=== PATIENT | female | born 1995 | race Caucasian/White ===

== ENCOUNTER 2018-04-17 13:28 | Emergency (ER) | payer OTHER ==
[~2018-04-17 13:28] MED LIST: AMOXICILLIN500 MG PO; AMOXICILLIN875 MG OR; AMOXICILLIN875 MG PO; AMPICILLIN500 MG PO; BACTRIM DS1 TAB PO; CELEXA20 M1 PO; CELEXA20 MG PO; CLONIDINE0.1 MG PO; DEPO-PROVER150 MG/ML IM; DEPO-PROVER400 MG/ML IM; DIFLUCAN150 MG PO; EPIPEN0.3 MG IM; FERROUS SULF325 M2 PO; FLOXIN OTIC0.3 % OT; GARDASIL IM; IMITREX50 M1 PO; IMPLANON68 MG SC; IRON325 MG OR; KEFLEX500 MG PO; NAPROXEN DR500 MG PO; NAPROXEN SOD550 MG OR; NASONEX50 MCG/AC; PAPAYA ENZY PO; PRILOSEC40 MG PO; PROZAC10 MG OR; PROZAC20 M1 OR; PROZAC20 M1 PO; PROZAC20 MG PO; PROZAC40 MG PO; SMZ/TMP DS1 TAB PO; TOPAMAX100 MG PO; TOPAMAX25 MG; TOPAMAX25 MG PO; VITAMIN C500 M6 PO; VITAMIN D400 UNI3 PO; WELLBUTRIN SR150 MG PO; WELLBUTRIN150 M2 PO
[2018-04-17] MEDS ORDERED: SYMBICORT1 AE1 IN (14:26)
[2018-04-17] MEDS ORDERED: PRE-NATAL PO (14:28)
[2018-04-17 14:31] LABS: URINE BILIRUBIN - DIPSTICK NEGATIVE (NEGATIVE); URINE BLOOD DIPSTICK NEGATIVE (NEGATIVE); URINE COLOR YELLOW; URINE GLUCOSE - DIPSTICK NEGATIVE (NEGATIVE); URINE KETONE NEGATIVE (NEGATIVE); URINE LEUK ESTERASE NEGATIVE (NEGATIVE); URINE NITRITE - DIPSTICK NEGATIVE (Negative); URINE PROTEIN - DIPSTICK NEGATIVE (NEG-TRACE); URINE UROBILINOGEN - DIPSTICK 0.2 E.U./dL (0.2)
[2018-04-17 14:43] LABS: HEMATOCRIT 34.9 % (37.0-47.0); HEMOGLOBIN 11.8 g/dl (12.0-16.0); IMMATURE GRANULOCYTES 0.3 % (0.0-5.0); MEAN CELL VOLUME 86.2 fL CALC (80.0-100.0); MEAN CORPUSCULAR HGB 29.1 pG CALC (26.0-32.0); MEAN CORPUSCULAR HGB CONC 33.8 g/L CALC (32.0-36.0); NEUT# 8.77 thou/uL (2.00-7.15); RED BLOOD COUNT 4.05 mill/uL (4.20-5.60); RED CELL DISTRI WIDTH 12.8 % (11.5-15.5)
[2018-04-17 14:59] LABS: ALBUMIN 3.6 g/dL (3.2-5.0); ALKALINE PHOSPHATASE 56 u/l (38-126); ANION GAP 12 (6-22 (CALC)); BILIRUBIN, TOTAL 0.3 mg/dL (0.0-1.4); BUN 5 mg/dL (7-17); BUN/CREATININE RATIO 10 (12-20 (CALC)); CARBON DIOXIDE 22 mmol/l (22-30); CHLORIDE 106 mmol/l (95-108); CREATININE 0.5 mg/dL (0.5-1.0); GFR > 60 ML/MIN (>=60 (CALC)); GFR FOR AFR.AMER. > 60 ML/MIN (>=60 (CALC)); LIPASE 79 u/l (23-300); POTASSIUM 3.8 mmol/l (3.5-5.1); SGOT/AST 17 u/l (14-36); SODIUM 136 mmol/l (137-146); TOTAL PROTEIN 6.5 g/dL (6.3-8.2)
[2018-04-17] MEDS ORDERED: PHENERGAN25 M1 PR (15:18)
[2018-04-17 16:05] VITALS: BP 120/74
== END 2018-04-17 16:05 | disposition home or self-care (01) ==
LOC: ED 13:28
DX: O26.892 Other specified pregnancy related conditions, second trimester (principal); R11.2 Nausea with vomiting, unspecified; Z3A.20 20 weeks gestation of pregnancy

== ENCOUNTER 2018-05-21 13:18 | Emergency (ER) | payer OTHER ==
[~2018-05-21] VITALS: Ht 152.4 cm; Wt 61.4 kg
[~2018-05-21 13:18] MED LIST changes: +PHENERGAN25 M1 PR; +PRE-NATAL PO; +SYMBICORT1 AE1 IN
[2018-05-21 15:18] LABS: HEMATOCRIT 33.7 % (37.0-47.0); HEMOGLOBIN 11.3 g/dl (12.0-16.0); IMMATURE GRANULOCYTES 0.5 % (0.0-5.0); MEAN CELL VOLUME 87.3 fL CALC (80.0-100.0); MEAN CORPUSCULAR HGB 29.3 pG CALC (26.0-32.0); MEAN CORPUSCULAR HGB CONC 33.5 g/L CALC (32.0-36.0); NEUT# 6.36 thou/uL (2.00-7.15); RED BLOOD COUNT 3.86 mill/uL (4.20-5.60); RED CELL DISTRI WIDTH 12.6 % (11.5-15.5)
[2018-05-21 15:20] LABS: URINE BILIRUBIN - DIPSTICK NEGATIVE (NEGATIVE); URINE BLOOD DIPSTICK NEGATIVE (NEGATIVE); URINE CLARITY CLEAR; URINE COLOR YELLOW; URINE GLUCOSE - DIPSTICK NEGATIVE (NEGATIVE); URINE KETONE NEGATIVE (NEGATIVE); URINE LEUK ESTERASE NEGATIVE (Negative); URINE NITRITE - DIPSTICK NEGATIVE (Negative); URINE PH 5.5 (4.5-8.0); URINE PROTEIN - DIPSTICK NEGATIVE (NEG-TRACE); URINE SPECIFIC GRAVITY <=1.005; URINE UROBILINOGEN - DIPSTICK 0.2 E.U./dL (0.2)
[2018-05-21 15:38] LABS: ALBUMIN 3.5 g/dL (3.2-5.0); ALKALINE PHOSPHATASE 63 u/l (38-126); ANION GAP 12 (6-22 (CALC)); BILIRUBIN, TOTAL 0.3 mg/dL (0.0-1.4); BUN 4 mg/dL (7-17); BUN/CREATININE RATIO 7 (12-20 (CALC)); CARBON DIOXIDE 23 mmol/l (22-30); CHLORIDE 105 mmol/l (95-108); CREATININE 0.6 mg/dL (0.5-1.0); GFR > 60 ML/MIN (>=60 (CALC)); GFR FOR AFR.AMER. > 60 ML/MIN (>=60 (CALC)); POTASSIUM 3.8 mmol/l (3.5-5.1); SGOT/AST 13 u/l (14-36); SODIUM 137 mmol/l (137-146); TOTAL PROTEIN 6.1 g/dL (6.3-8.2)
[2018-05-21 17:56] VITALS: BP 115/68
== END 2018-05-21 17:56 | disposition home or self-care (01) ==
LOC: ED 13:18
PROVIDERS: Emergency Medicine
DX: O26.892 Other specified pregnancy related conditions, second trimester (principal); S20.211A Contusion of right front wall of thorax, initial encounter; Z3A.25 25 weeks gestation of pregnancy; W10.8XXA Fall (on) (from) other stairs and steps, initial encounter; Y93.01 Activity, walking, marching and hiking; Y92.009 Unspecified place in unspecified non-institutional (private) residence as the place of occurrence of the external cause

== ENCOUNTER 2022-04-14 07:29 | Emergency (ER) | payer OTHER ==
[~2022-04-14] VITALS: Ht 152.4 cm; Wt 63.5 kg
[2022-04-14 08:07] VITALS: BP 118/80
[2022-04-14 08:31] VITALS: BP 122/71
[2022-04-14] MEDS ORDERED: AMOXICILLIN500 M2 PO (08:49)
[2022-04-14 09:00] VITALS: BP 109/79
[2022-04-14 09:12] VITALS: BP 109/79
== END 2022-04-14 09:21 | disposition home or self-care (01) ==
LOC: ED 07:29
DX: H66.91 Otitis media, unspecified, right ear (principal); J45.909 Unspecified asthma, uncomplicated

== ENCOUNTER 2022-04-16 10:56 | Emergency (ER) | payer OTHER ==
[~2022-04-16] VITALS: Ht 152.4 cm; Wt 68.0 kg
[~2022-04-16 10:56] MED LIST changes: +AMOXICILLIN500 M2 PO
[2022-04-16 11:04] VITALS: BP 114/74
[2022-04-16 11:30] VITALS: BP 110/74
[2022-04-16 12:00] VITALS: BP 111/68
[2022-04-16] MEDS ORDERED: CLARITIN10 M1 PO (12:04)
[2022-04-16] MEDS ORDERED: FLONASE AL50 MCG/ACT (12:04)
[2022-04-16] MEDS ORDERED: AMOX/K CLAV875 M1 PO (12:04)
[2022-04-16] MEDS ORDERED: FLOXIN OTIC0.3 % OU (12:04)
[2022-04-16] MEDS ORDERED: LORTAB 1010 MG PO (12:06)
[2022-04-16 12:28] VITALS: BP 111/68
== END 2022-04-16 12:28 | disposition home or self-care (01) ==
LOC: ED 10:56
DX: H66.92 Otitis media, unspecified, left ear (principal); J02.9 Acute pharyngitis, unspecified; J45.909 Unspecified asthma, uncomplicated; Z20.822 Contact with and (suspected) exposure to COVID-19

== ENCOUNTER 2022-06-21 08:34 | Emergency (ER) | payer OTHER ==
[~2022-06-21] VITALS: Ht 157.5 cm; Wt 62.6 kg
[~2022-06-21 08:34] MED LIST changes: +AMOX/K CLAV875 M1 PO; +CLARITIN10 M1 PO; +FLONASE AL50 MCG/ACT; +FLOXIN OTIC0.3 % OU; +LORTAB 1010 MG PO
[2022-06-21 10:21] LABS: BASO% 0.3 % (0-3); EOS% 1.5 % (0-8); IMMATURE GRANULOCYTES 0.1 % (0.0-5.0); LYMPH% 8.4 % (15-41); MEAN CORPUSCULAR HGB 27.6 pG CALC (26.0-32.0); MEAN CORPUSCULAR HGB CONC 32.4 g/dL CAL (32.0-36.0); MONO% 4.3 % (2-13); NEUT# 9.33 thou/uL (2.00-7.15); NEUT% 85.4 % (42-76); RED BLOOD COUNT 5.26 mill/uL (4.20-5.60); RED CELL DISTRI WIDTH 12.4 % (11.5-15.5)
[2022-06-21 10:22] LABS: HEMATOCRIT 44.7 % (37.0-47.0); HEMOGLOBIN 14.5 g/dl (12.0-16.0)
[2022-06-21 10:27] LABS: URINE BILIRUBIN - DIPSTICK NEGATIVE (NEGATIVE); URINE BLOOD DIPSTICK NEGATIVE (NEGATIVE); URINE COLOR YELLOW; URINE GLUCOSE - DIPSTICK NEGATIVE (NEGATIVE); URINE KETONE NEGATIVE (NEGATIVE); URINE PH 5.5 (4.5-8.0); URINE PROTEIN - DIPSTICK NEGATIVE (NEG-TRACE); URINE SPECIFIC GRAVITY >=1.030; URINE UROBILINOGEN - DIPSTICK 0.2 E.U./dL (0.2)
[2022-06-21 10:28] LABS: URINE BACTERIA FEW hpf; URINE EPITHELIAL CELLS MODERATE EPI/hpf (0-FEW); URINE LEUK ESTERASE MODERATE (NEGATIVE); URINE NITRITE - DIPSTICK NEGATIVE (Negative)
[2022-06-21 10:29] LABS: ALKALINE PHOSPHATASE 59 u/l (38-126); ANION GAP 14 (6-22 (CALC)); BILIRUBIN, TOTAL 0.6 mg/dL (0.02-1.3); BUN 14 mg/dL (7-17); BUN/CREATININE RATIO 14 (12-20 (CALC)); CARBON DIOXIDE 22 mmol/l (22-30); CHLORIDE 103 mmol/l (95-108); GFR FOR AFR.AMER. > 60 ML/MIN (>=60 (CALC)); GFR OTHER RACES > 60 ML/MIN (>=60 (CALC)); LIPASE 99 u/l (23-300); POTASSIUM 4.3 mmol/l (3.5-5.1); SGOT/AST 22 u/l (14-36); SODIUM 135 mmol/l (137-146); TOTAL PROTEIN 8.1 g/dL (6.3-8.2)
[2022-06-21 15:16] VITALS: BP 110/71
== END 2022-06-21 15:30 | disposition home or self-care (01) ==
LOC: ED 08:34
PROVIDERS: Emergency Medicine
DX: R10.2 Pelvic and perineal pain (principal); J45.909 Unspecified asthma, uncomplicated

== ENCOUNTER 2022-07-30 21:08 | Emergency (ER) | payer OTHER ==
[~2022-07-30] VITALS: Ht 157.5 cm; Wt 63.0 kg
[2022-07-30 21:18] VITALS: BP 114/77
[2022-07-30 21:30] VITALS: BP 108/72
[2022-07-30 23:16] VITALS: BP 108/72
== END 2022-07-30 23:26 | disposition home or self-care (01) ==
LOC: ED 21:08
DX: M25.572 Pain in left ankle and joints of left foot (principal); R51.9 Headache, unspecified; J45.909 Unspecified asthma, uncomplicated